=== PATIENT | female | born 1960 | race Caucasian/White ===

== ENCOUNTER 2019-06-08 09:20 | Outpatient (CLI) | payer BC ==
[2019-06-08] MEDS ORDERED: BARIUM SULFATE 148 GM POWDER PO ONE (11:55)
--- NOTE | 2019-06-08 15:35 | XRAY Report ---
Reason: DYSPHASIA Procedure Date: 06/08/2019 Accession Number: [id number] / [id number] Procedure: [place] - Modified Barium Swallow W/SP CPT Code: FULL RESULT: EXAM: MODIFIED BARIUM SWALLOW EXAM DATE: 06/08/2019 10:25 AM. CLINICAL HISTORY: Dysphasia. COMPARISON: None. TECHNIQUE: Under the direction of speech pathology, patient swallowed various consistencies of barium under lateral fluoroscopic observation of the neck. Fluoroscopy Time: 37 seconds. Number of Images: 26. FINDINGS: Swallowing Mechanism: Normal oral phase and swallowing reflex. Airway Protection: Normal epiglottic motion. No episodes of tracheal penetration or aspiration with all consistencies of barium. Pharynx: Normal. No significant vallecular or piriform sinus contrast pooling. Other: None. IMPRESSION: Normal modified barium swallow. No aspiration identified. [facility]
== END 2019-06-08 09:21 | disposition home or self-care (01) ==
LOC: DI 09:20
PROVIDERS: ATTEND Physician Assistant
DX: R47.02 Dysphasia (principal)
CPT/HCPCS: 74230